=== PATIENT | male | born 1980 | race Caucasian/White ===

== ENCOUNTER 2019-10-11 15:03 | Emergency (ER) | payer MEDICARE, MEDICAID ==
[~2019-10-11] VITALS: Ht 182 cm; Wt 211.8 kg
[~2019-10-11 15:03] MED LIST: ALLO300T2 PO; ALPR1TAB7 PO; CITA40TA11 PO; GABA-488 PO; HYDR-4226 PO; NAPR-1070 PO; VENL75CA PO
--- NOTE | 2019-10-11 15:12 | ED Lower Extremity ---
General Stated Complaint: TWISTED ANKLE Source: patient Exam Limitations: no limitations History of Present Illness Date Seen by Provider: October 11, 2019 Time Seen by Provider: 15:10 Initial Comments To ER per EMS Luis Cristine with reports of stepping down off a curb and felt a popping sensation in his left heel and subsequent pain and inability to bear cristian ght. No other injuries. Onset: just prior to arrival Severity: moderate Pain/Injury Location: left heel Method of Injury: fell Modifying Factors: Worse With Movement Allergies and Home Medications Allergies Coded Allergies: No Known Drug Allergies (Unverified , 01/09/16) Home Medications Allopurinol 300 Mg Tablet, 1 TAB PO DAILY, (Reported) Alprazolam 1 Mg Tablet, 1 TAB PO UD, (Reported) Citalopram Hydrobromide 40 Mg Tablet, 1 TAB PO DAILY, (Reported) Gabapentin 300 Mg Capsule, 1 CAP PO TID, (Reported) Hydrocodone/Acetaminophen 1 Each Tablet, 1 EACH PO Q4H PRN for PAIN Prescribed by: PING PEREZ on 01/09/16 1351 Hydrocodone/Acetaminophen 1 Each Tablet, 1 EACH PO Q4-6HR PRN for PAIN-MODERATE Prescribed by: PING PEREZ on 10/11/19 1606 Venlafaxine HCl 75 Mg Cap.er.24h, 75 MG PO DAILY, (Reported) Patient Home Medication List Home Medication List Reviewed: Yes Review of Systems Constitutional: see HPI EENTM: see HPI Respiratory: no symptoms reported Cardiovascular: no symptoms reported Genitourinary: no symptoms reported Musculoskeletal: see HPI, joint pain Skin: no symptoms reported Psychiatric/Neurological: No Symptoms Reported Past Bpqpqzs-Eubfmq-Mlawod Hx Patient Social History Alcohol Beverage of Choice: Beer Type Used: Cigarettes Former Smoker, Quit: Mar 18, 2006 Recent Hopitalizations: No Immunizations Up To Date Tetanus Booster (TDap): Less than 5yrs Date of Influenza Vaccine: Feb 29, 2016 Seasonal Allergies Seasonal Allergies: No Past Medical History Orthopedic Neuropathy Reproductive Disorders: No Gout Diabetes, Non-Insulin dep Lymphoma Adverse Reaction/Blood Tranf: No Physical Exam Vital Signs Vital Signs - First Documented 10/11/19 15:13 Temp 37.0 Pulse 117 Resp 18 B/P (MAP) 115/71 (86) Pulse Ox 95 Capillary Refill : Height, Weight, BMI Height: 6'0" Weight: 500lbs. oz. 226.086273fk; BMI Method:Stated General Appearance: WD/WN, no apparent distress, obese (morbidly obese which precludes evaluation of swelling of the ankle.) Respiratory: no respiratory distress, no accessory muscle use Hips: bilateral hip non-tender, bilateral hip normal inspection, bilateral hip normal range of motion Legs: bilateral leg non-tender, bilateral leg normal inspection, bilateral leg normal range of motion Knees: bilateral knee non-tender, bilateral knee normal inspection, bilateral knee normal range of motion Ankles: left ankle pain, left ankle soft tissue tenderness Feet: bilateral foot normal inspection, bilateral foot normal range of motion; left foot other (tenderness to palpation over the heel) Neurologic/Psychiatric: alert, normal mood/affect, oriented x 3 Skin: normal color, warm/dry Progress/Results/Core Measures Results/Orders My Orders Orders - PING PEREZ APRN Ankle, Left, 3 Views (10/11/19 15:08) Hydrocodone/Apap 5/325 Tablet (Lortab 5 (10/11/19 16:15) Ibuprofen Tablet (Motrin Tablet) (10/11/19 16:15) Medications Given in ED Current Medications Medications Dose Ordered Sig/Evi Route Start Time Stop Time Status Last Admin Dose Admin Acetaminophen/ Hydrocodone Bitart 1 tab ONCE ONCE PO 10/11/19 16:15 10/11/19 16:16 DC 10/11/19 16:11 1 TAB Ibuprofen 600 mg ONCE ONCE PO 10/11/19 16:15 10/11/19 16:16 DC 10/11/19 16:11 600 MG Vital Signs/I&O 10/11/19 15:13 Temp 37.0 Pulse 117 Resp 18 B/P (MAP) 115/71 (86) Pulse Ox 95 Diagnostic Imaging Diagonstic Imaging: Xray Departure Communication (Admissions) Pts weight of 464 puts him over the weight limit of the CT machine. Will place him in a posterior short leg splint+stirrup splint. He has a wheelchair at home already. He has also used crutches before. He is neurovascularly intact at the toes. Impression Primary Impression: Calcaneus fracture, left Qualified Codes: S92.015A - Nondisplaced fracture of body of left calcaneus, initial encounter for closed fracture Disposition: 01 HOME, SELF-CARE Condition: Stable Departure-Patient Inst. Decision time for Depature: 16:00 Referrals: NO LANTIGUA DPM NO,LOCAL PHYSICIAN (PCP) Primary Care Physician SHENG DOMINGUEZ MD, ROBERT F DO WILDE, CORIN Q DPM ZAFUTA, MICHAEL P MD Patient Instructions: Heel Fracture Add. Discharge Instructions: 1. Wear the splint at all times until you follow up with orthopedics. Do not put any weight on the left foot. Call an orthopedic surgeon of your choosing today or tomorrow to make an appointment for follow-up within the next 1-2 weeks. Pain medication as directed. Scripts Hydrocodone/Acetaminophen (Lorcet 5-325 mg Tablet) 1 Each Tablet 1 EACH PO Q4-6HR PRN for PAIN-MODERATE MDD 10 for 7 Days, #30 TAB Prov: PING PEREZ APRN 10/11/19 PING PEREZ APRN October 11, 2019 15:12
--- NOTE | 2019-10-11 15:54 | Diagnostic Imaging Report ---
INDICATION: Stepped off a curb and heard a pop. Left ankle pain. TIME OF EXAM: 03:32 p.m. FINDINGS: There is generalized demineralization of the left ankle. Ankle alignment appears normal. Ankle mortise is well maintained. Talar dome is smooth. Lateral view does show an obliquely oriented fracture through the posterior aspect of the calcaneus. It is uncertain if this communicates with the subtalar joint. There is also an osseous density adjacent to the plantar aspect of the calcaneus which may represent avulsion of a calcaneal spur. Distal tibia and fibula appear to be intact. No other fractures are seen. IMPRESSION: Calcaneus fracture, as described. There may also be an avulsion of the plantar calcaneal spur. Dictated by: Dictated on workstation # [id number]
[2019-10-11] MEDS ORDERED: HYDR-3870 PO (16:06)
[2019-10-11] MEDS ORDERED: IBUPROFEN 600 MG (MOTRIN) TAB PO ONE (16:15)
[2019-10-11] MEDS ORDERED: HYDROcodone/APAP 5 MG/325 MG (LORTAB) TAB PO ONE (16:15)
[2019-10-11 16:35] VITALS: BP 129/74
--- OUTSIDE RECORDS SUMMARY | 2019-10-11 19:18 | XMS REPORT | Continuity of Care Document ---
Author Organization Unknown Address Unknown Phone Unavailable Allergies Active Description Code Type Severity Reaction Onset Reported/Identified Relationship to Patient Clinical Status Yes No Known Drug Allergies [id number] Drug Allergy Unknown N/A 01/09/2016 Medications There is no data. Problems Date Dx Coded Attending Type Code Diagnosis Diagnosed By 08/31/2015 SURESH COLLADO Ot M19.071 PRIMARY OSTEOARTHRITIS, RIGHT ANKLE AND 09/21/2015 SURESH COLLADO Ot M19.071 PRIMARY OSTEOARTHRITIS, RIGHT ANKLE AND 01/09/2016 PING PEREZ APRN Ot S52.501A UNSP FRACTURE OF THE LOWER END OF RIGHT 01/09/2016 PING PEREZ APRN Ot S69.91XA UNSP INJURY OF RIGHT WRIST, HAND AND FIN 01/09/2016 PING PEREZ APRN Ot W01.0XXA FALL SAME LEV FROM SLIP/TRIP W/O STRIKE 01/09/2016 PING PEREZ APRN Ot Y92.34 SWIMMING POOL (PUBLIC) PLACE 01/09/2016 PING PEREZ APRN Ot Y99 .8 OTHER EXTERNAL CAUSE STATUS 01/19/2016 SURESH COLLADO Ot M19.071 PRIMARY OSTEOARTHRITIS, RIGHT ANKLE AND 01/19/2016 CRISTIAN SEVILLA DO Ot K80.20 CALCULUS OF GALLBLADDER W/O CHOLECYSTITI 01/19/2016 CRISTIAN SEVILLA DO Ot M94.0 CHONDROCOSTAL JUNCTION SYNDROME [TIETZE] 01/19/2016 CRISTIAN SEVILLA DO Ot R16.1 SPLENOMEGALY, NOT ELSEWHERE CLASSIFIED 01/19/2016 CRISTIAN SEVILLA DO Ot S20.212A CONTUSION OF LEFT FRONT WALL OF THORAX, 01/19/2016 CRISTIAN SEVILLA DO Ot S29.9XXA UNSPECIFIED INJURY OF THORAX, INITIAL EN 01/19/2016 CRISTIAN SEVILLA DO, Ot W01.0XXA FALL SAME LEV FROM SLIP/TRIP W/O STRIKE 01/19/2016 CRISTIAN SEVILLA DO Ot Y92.34 SWIMMING POOL (PUBLIC) PLACE 01/19/2016 DI PAYTONCRISTIAN Ot Y93.11 ACTIVITY, SWIMMING 01/19/2016 DI CRISTIAN PAYTON Ot Y99.8 OTHER EXTERNAL CAUSE STATUS 01/22/2016 DI CRISTIAN PAYTON Ot K80.20 CALCULUS OF GALLBLADDER W/O CHOLECYSTITI 01/22/2016 DI CRISTIAN PAYTON Ot M94.0 CHONDROCOSTAL JUNCTION SYNDROME [TIETZE] 01/22/2016 DI CRISTIAN PAYTON Ot R16.1 SPLENOMEGALY, NOT ELSEWHERE CLASSIFIED 01/22/2016 DI CRISTIAN PAYTON Ot S20.212A CONTUSION OF LEFT FRONT WALL OF THORAX, 01/22/2016 ID CRISTIAN PAYTON Ot S29.9XXA UNSPECIFIED INJURY OF THORAX, INITIAL EN 01/22/2016 DI PAYTONCRISTIAN Ot W01.0XXA FALL SAME LEV FROM SLIP/TRIP W/O STRIKE 01/22/2016 CRISTIAN SEVILLA DO Ot Y92.34 SWIMMING POOL (PUBLIC) PLACE 01/22/2016 DI CRISTIAN PAYTON Ot Y93.11 ACTIVITY, SWIMMING 01/22/2016 DI PAYTONCRISTIAN Ot Y99.8 OTHER EXTERNAL CAUSE STATUS 04/07/2016 BRIA SANTA MD Ot E11.9 TYPE 2 DIABETES MELLITUS WITHOUT COMPLIC 04/07/2016 BRIA SANTA MD Ot F17.210 NICOTINE DEPENDENCE, CIGARETTES, UNCOMPL 04/07/2016 BRIA SANTA MD Ot R07.89 OTHER CHEST PAIN 04/07/2016 BRIA SANTA MD Ot S29.9XXA UNSPECIFIED INJURY OF THORAX, INITIAL EN 04/07/2016 BRIA SANTA MD Ot W18.30XA FALL ON SAME LEVEL, UNSPECIFIED, INITIAL 04/07/2016 BRIA SANTA MD Ot Y92.[address] OR NOT APPLICABLE 04/07/2016 BRIA SANTA MD Ot Y93.9 ACTIVITY, UNSPECIFIED 04/07/2016 BRIA SANTA MD Ot Y99.8 OTHER EXTERNAL CAUSE STATUS 04/08/2016 BRIA SANTA MD Ot E11.9 TYPE 2 DIABETES MELLITUS WITHOUT COMPLIC 04/08/2016 BRIA SANTA MD Ot F17.210 NICOTINE DEPENDENCE, CIGARETTES, UNCOMPL 04/08/2016 BRIA SANTA MD Ot R07.89 OTHER CHEST PAIN 04/08/2016 BRIA SANTA MD Ot S29.9XXA UNSPECIFIED INJURY OF THORAX, INITIAL EN 04/08/2016 BRIA SANTA MD Ot W18.30XA FALL ON SAME LEVEL, UNSPECIFIED, INITIAL 04/08/2016 BRIA SANTA MD Ot Y92.[address] OR NOT APPLICABLE 04/08/2016 BRIA SANTA MD Ot Y93.9 ACTIVITY, UNSPECIFIED 04/08/2016 BRIA SANTA MD Ot Y99.8 OTHER EXTERNAL CAUSE STATUS 10/11/2019 SURESH COLLADO Ot M19.071 PRIMARY OSTEOARTHRITIS, RIGHT ANKLE AND Procedures There is no data. Results There is no data. Encounters ACCT No. Visit Date/Time Discharge Status Pt. Type Provider Facility Loc./Unit Complaint [id number] 10/11/2019 15:04:00 020 16:35:00 DIS Emergency PING PEREZ APRN [facility] ER TWISTED ANKLE [id number] 04/07/2016 14:11:00 016 17:09:00 DIS Emergency BRIA SANTA MD [facility] ER FALL/RIGHT RIB PAIN [id number] 01/19/2016 03:49:00 016 06:00:00 DIS Emergency CRISTIAN SEVILLA DO [facility] ER CP FROM FALL LAST WEEK, SOB [id number] 01/09/2016 13:38:00 016 14:07:00 DIS Emergency PING PEREZ APRN [facility] ER FALL RIGHT WRIST INJURY [id number] 08/10/2015 17:44:00 016 23:59:59 CLS Outpatient SURESH COLLADO [facility] RAD RT TOE PAIN,INJ URY
--- OUTSIDE RECORDS SUMMARY | 2019-10-11 19:18 | XMS REPORT ---
Author Author [facility] [employer] [facility] [employer] [facility] [employer] Address [address] [address] Care Team Providers Care Corn Detasseler Machine Operator Name Role Phone NO, LOCAL PHYSICIAN Unavailable Unavailable BRIA SANTA MD Unavailable Unavailable SURESH COLLADO Unavailable Unavailable BRIA SANTA MD Unavailable Unavailable MAGED LY APRN PCP PING PEREZ APRN Unavailable Unavailable Unavailable Unavailable Unavailable Unavailable Unavailable Unavailable Allergies Normalized Allergy Reported Date of Reaction(s) Care Provider Facility Allergy Type classification allergen Allergy Onset DA (1 source.) Unclassified No Known Drug 01-09-2016 - no inform ation BRIA Not Available Allergies ARINA ([id number]) Medications Medication Ingredient Drug Dose Dates Status Sig Sig Care Class(es) (Normalized) (Original) Provid er no venlafaxine Serotonin Active no Venlafaxine no information and information Hcl Active name (1 source.) Norepinephr 75 ORAL ine Daily Reuptake Inhibitor Problems Active Problems Problem Normalized Date Last Normalized Normalized Provider Fa cility Classification Problem(s) Recorded Problem Problem Sta tus Duration External cause Activity, 10-11-2019 - Episodic Active PING SPICER [facility] Via codes: unspecified HOSPITALIST PHYSICIAN Amanda Unspecified (6 Translations: Hospital - sources.) [ OTHER [place] EXTERNAL CAUSE (10724) STATUS] External cause Fall on same 10-11-2019 - Episodic Active AWA ROSENTHAL Via codes: Fall (4 level, HOSPITALIST PHYSICIAN Amanda sources.) unspecified, Hospital - initial [place] encounter (99364) Translations: [ FALL SAME LEV FROM SLIP/TRIP W/O STRIKE ] Fracture of Fracture of Episodic Active MAGED Head on Via lower limb (1 calcaneus 08590 (Work Amanda source.) Phone: Hospital ([phone]) ) Substance-rela Nicotine 10-11-2019 - Chronic Active BRIA [facility] Via mary disorders dependence, Amanda SANTA (3 sources.) cigarettes, Hospital - uncomplicated [place] ([address]) Nonspecific Other chest 10-11-2019 - Episodic Active BRIA [facility] chest pain (4 pain Amanda SANTA sources.) Translations: Hospital - [ Chest wall [place] pain] (93286) Osteoarthritis Primary 10-11-2019 - Chronic Active SURESH [facility] Via (2 sources.) osteoarthritis OZZIE PARSONS , right ankle Hospital - and foot [place] (43712) Diabetes Type 2 10-11-2019 - Chronic Active BRIA [facility] ia mellitus diabetes Amanda SANTA without mellitus Hospital - complication without [place] (3 sources.) complications (39508) Other injuries Unspecified 10-11-2019 - Episodic Active PING PEREZ [facility] Via and conditions injury of ALEJANDRO Patel due to right wrist, Hospital - external hand and [place] causes (2 finger(s), (51971) sources.) initial encounter Other injuries Unspecified 10-11-2019 - Episodic Active BRIA [facility] Via and conditions injury of Amanda SANTA due to thorax, Hospital - external initial [place] causes (6 encounter (49192) sources.) External cause Unspecified 10-11-2019 - Episodic Active IPNG PEREZ [facility] Via codes: Place place or not HOSPITALIST PHYSICIAN Amanda of occurrence applicable Hospital - (4 sources.) Translations: [place] [ SWIMMING (63001) POOL (PUBLIC) PLACE] Past or Other Problems Problem Normalized Date Last Normalized Normalized Provider Fa cility Classification Problem(s) Recorded Problem Problem Sta tus Duration External cause Activity, no information no information BRIA Not Available codes: unspecified ARINA , (93382) Unspecified (2 Translations: MD sources.) [ OTHER EXTERNAL CAUSE STATUS] External cause Fall on same no information no information JOSHU A Not Available codes: Fall (1 level, ARINA , (30611) source.) unspecified, MD initial encounter External cause Unspecified no information no information BRIA Not Available codes: Place place or not ARINA , (52427) of occurrence applicable MD (1 source.) Procedures Procedure Normalized Procedure Procedure Result Performer Facility Date 10-11-2019 X-ray of left ankle no information no name [facility] ([address]) Immunizations The data below is from unstructured sources Immunization Event Date Not Given Reason Dose Number Rolling Up Machine Operator Lot Number Vaccine Information Statement (VIS) Deta il Results The data below is from unstructured sourcesNo known relevant diagnostic tests, laboratory data and/or discharge summary.No known relevant diagnostic tests, laboratory data and/or discharge summary.No known relevant diagnostic tests, laboratory data and/or discharge summary.No known relevant diagnostic tests and/or laboratory data.No known relevant diagnostic te sts and/or laboratory data. Vital Signs The data below is from unstructured sources Vital Response Date/Time Temperature (Fahrenheit) 98.4 degree s F (97.6 - 99.5) 01/09/2016 1:35pm Temperature (Calculated Celsius) 36. 94806 degrees C (36.4 - 37.5) 01/09/2016 1:35pm Temperature Source Temporal 01/09/2016 1:35pm Pulse Rate (adult) 90 bpm (60 - 90) 01/09/2016 1:35pm Respiratory Rate 20 bpm (12 - 24) 01/09/2016 1:35pm O2 Sat by Pulse Oximetry 97 % (88 - 100) 01/09/2016 1:35pm Blood Pressure 145/84 mm Hg 01/09/2016 1:35pm Blood Pressure Mean 104 mm Hg 01/09/2016 1:35pm Pain Numeric Pain Scale 6 1:35pm Height (Feet) 6 feet 1:35pm Height (Inches) 0 inches 01/09/2016 1:35pm Height (Calculated Centimeters) 182. 113759 cm 01/09/2016 1:35pm Weight (Pounds) 380 pounds 01/09/2016 1:35pm Weight (Calculated Kilograms) 172.36 5102 kilograms 01/09/2016 1:35pm Capillary Refill Capillary Refill Less Than 3 Seconds 01/09/2016 1:35pm Height 6 ft 0 in Weight 380 lb Body Mass Index 51.5 kg/m^2 Vital Response Date/Time Temperature (Fahrenheit) 97.0 degree s F (97.6 - 99.5) 01/19/2016 5:57am Temperature (Calculated Celsius) 36. 35136 degrees C (36.4 - 37.5) 01/19/2016 5:57am Temperature Source Temporal 01/19/2016 5:57am Pulse Rate (adult) 96 bpm (60 - 90) 01/19/2016 5:57am Respiratory Rate 16 bpm (12 - 24) 01/19/2016 5:57am O2 Sat by Pulse Oximetry 95 % (88 - 100) 01/19/2016 5:57am Blood Pressure 165/101 mm Hg 01/19/2016 5:57am Blood Pressure Mean 120 mm Hg 01/19/2016 3:58am Pain Numeric Pain Scale 5-Moderate Pain 01/19/2016 5:57am Height (Feet) 6 feet 07/2015 3:58am Height (Inches) 0 inches 01/19/2016 3:58am Height (Calculated Centimeters) 182. 631783 cm 01/19/2016 3:58am Weight (Pounds) 424 pounds 01/19/2016 3:58am Weight (Calculated Kilograms) 192.32 3167 kilograms 01/19/2016 3:58am Capillary Refill Capillary Refill Less Than 3 Seconds 01/19/2016 3:58am Height 6 ft 0 in Weight 424 lb Body Mass Index 57.5 kg/m^2 Vital Reading Result Col lection Date/Time Vital Reading Result Col lection Date/Time Interventions No Information Plan of Treatment Normalized Care Care Detail Care Activity Date Care Provider F acility Activity Patient Education Heel Fracture no information MAGED LY [address] (Work Phone: [facility] ) ([id number]) Patient referral no information no information MAGED LY [address] (Work Phone: [facility] ) ([address]) Goals Patient Goal Desired Goal no information no information Social History Normalized Code Original Code Date Value Tobacco smoking status Tobacco smoking status no information Ex-smoker (finding) AKIS AKIS no information no information 10-11-2019 Occasionally Us es no information no information 10-11-2019 No no information no information 10-11-2019 Former Smoker no information no information 10-11-2019 Cigarettes Sex Assigned At Sex Assigned At no information M disha Functional Status The data below is from unstructured sourcesNo functional status results.No functional status results.No functional status results.No Functional Status information availableNo Functional Status information available Mental Status The data below is from unstructured sourcesNo Mental Status Information Available Encounters Encounter Normalized Encounter Encounter Diagnosis Care Provi cassie Organization Date Type 10-11-2019 Emergency department no information (no phone) [facility] Amanda - patient visit [facility] (no phone) 10-11-2019 10-11-2019 Emergency department no information BRIA ALEMAN [facility] Amanda patient visit (no phone) [facility] (no phone) 04-07-2016 Emergency department no information no name no organization name - patient visit 04-07-2016 04-07-2016 Emergency department no information BRIA ALEMAN [facility] Amanda - patient visit (no phone) [facility] 04-07-2016 (no phone) 01-09-2016 Emergency department no information PING LI (no [facility] Amanda - patient visit phone) [facility] 01-09-2016 (no phone) 08-10-2015 Patient encounter no information SURESH HORNE [facility] Amanda procedure (no phone) [facility] (no phone) Medical Equipment The data below is from unstructured sourcesNo Medical Equipment Information available Payers Normalized Payer Value Medicaid no information ([id number]) Medicare no information ([id number]) Evaluation note Note Type Note Facility Evaluation No Assessments Information Available A scension note [facility] ([id number]) Advance Directives Directive Response Recor ded Date/Time Advance Directives No 1:35pm Resuscitation Status Full Code 01/09/16 1:35pm Directive Response Recor ded Date/Time Advance Directives No 3:58am Resuscitation Status Full Code 01/19/16 3:58am Advance Directive Response Recorded Date/Time Advance Directives No Ma 2019 3:13pm Organ Donor No October 11, 2019 3:13pm Resuscitation Status Full Code October 11, 2019 3:13pm Discharge Instructions No hospital discharge instructions.No hospital discharge instructions. Chief Complaint and Reason for Visit Chief Complaint Lower Extremity Reason for Visit [id number] Additional Source Comments This clinical document has been generated using [employer] software that has been certified by the Office of the National Coordinator for Health Information Technology (ONC 15.99.04.3023.Diam.31.00.0.244776) and the National Committee for Tool Specialist (NCQA, as an eMeasure certified technology). FOR RECORDS PERTAINING TO PATIENTS WHO ARE OR HAVE BEEN ENROLLED IN A CHEMICAL D EPENDENCY/SUBSTANCE ABUSE PROGRAM, SOME INFORMATION MAY BE OMITTED. This clinica l summary was aggregated from multiple sources. Caution should be exercised in using it in the provision of clinical care. This summary normalizes information from multiple sources, and as a consequence, information in this document may ma terially change the coding, format and clinical context of patient data. In karla tion, data may be omitted in some cases. CLINICAL DECISIONS SHOULD BE BASED ON T HE PRIMARY CLINICAL RECORDS. [employer] provides no warranty or guara ntee of the accuracy or completeness of information in this document.The followi ng information is based on time limited clinical information
== END 2019-10-11 16:35 | disposition home or self-care (01) ==
LOC: EDUNIT# 15:03 → ER 15:04
DX: S92.002A Unspecified fracture of left calcaneus, initial encounter for closed fracture (principal); E11.40 Type 2 diabetes mellitus with diabetic neuropathy, unspecified; M10.9 Gout, unspecified; Z87.891 Personal history of nicotine dependence; Z85.71 Personal history of Hodgkin lymphoma; X50.1XXA Overexertion from prolonged static or awkward postures, initial encounter
CPT/HCPCS: 29515; 73610

== ENCOUNTER → 2020-11-13 | Outpatient (CLI) | payer MEDICARE, MEDICAID ==
[~2020-11-13] MED LIST changes: +HYDR-3870 PO
== END | disposition home or self-care (01) ==
LOC: PREOP 05:32
PROVIDERS: ATTEND Specialist
DX: Z01.818 Encounter for other preprocedural examination (principal)

== ENCOUNTER 2022-09-17 11:07 | Emergency (ER) | payer MEDICARE, MEDICAID ==
[~2022-09-17 11:07] MED LIST changes: -CITA40TA11 PO; +CITA40TA13 PO
--- NOTE | 2022-09-17 11:32 | ED General ---
General Chief Complaint: General Problems/Pain Stated Complaint: MED REFILL Nursing Triage Note: PT TO RM 1 BY [facility] WITH C/O NEEDING HIS MEDS REFILLED. PT SEES DR TALAVERA BUT HAS NOT SEEN HIM IN TOO LONG. PT STATES HE HAS BEEN OUT OF HIS MEDS FOR MONTHS Source of Information: Patient Exam Limitations: No Limitations (ROHIT NEGRO) History of Present Illness Date Seen by Provider: September 17, 2022 Time Seen by Provider: 11:27 Initial Comments Patient is a 41-year-old male who was brought to ED by [facility] from [facility] for medication refill. Patient states he has a history of hypertension and diabetes type 2. States he has been out of his metformin, metoprolol for at least a few months. States his blood sugar has been running high but been well controlled with diet changes. Patient also reports finishing his gabapentin for neuropathy about a week ago. Requesting refill of his metoprolol, metformin and gabapentin. Patient states he follows up with Dr. TALAVERA at [facility]. He typically gets around with a wheelchair but states he was not able to follow-up with his primary care physician due to limited vehicle access. Patient does not want any further lab work or work-up at this time. Patient only request is medication refill. Denies chest pain, cough, shortness of breath, headache, dizziness, weakness. Reports chronic neuropathy in his lower extremities described as numbness and tingling. No increasing pain. Patient blood sugar for EMS was 453. Refused addressing this elevated blood sugar. Denies frequent urination, pain with urination, fever, visual changes (ROHIT NEGRO) Allergies and Home Medications Allergies Coded Allergies: No Known Drug Allergies (Unverified , 01/09/16) Patient Home Medication List Home Medication List Reviewed: Yes (ROHIT NEGRO) Allopurinol (Allopurinol) 300 Mg Tablet, 1 TAB PO DAILY, (Reported) Entered as Reported by: MELINDA HOPPER on 01/19/16357 Alprazolam (Alprazolam) 1 Mg Tablet, 1 TAB PO UD, (Reported) Entered as Reported by: MELINDA HOPPER on 01/19/16357 Citalopram Hydrobromide (Citalopram HBr) 40 Mg Tablet, 1 TAB PO DAILY, (Reported) Entered as Reported by: MELINDA HOPPER on 01/19/16 0358 Clotrimazole/Betamethasone Dip (Clotrimazole-Betamethasone Crm) 1 %-0.05 % Cream..g., 15 GM TP BID Prescribed by: OZZIE VYAS on 09/17/22 113 Gabapentin (Gabapentin) 300 Mg Capsule, 1 CAP PO TID, (Reported) Entered as Reported by: MELINDA HOPPER on 01/19/16357 Gabapentin (Neurontin) 300 Mg Capsule, 300 MG PO TID Prescribed by: OZZIE VYAS on 09/17/22 113 Hydrocodone/Acetaminophen (Hydrocodone/Acetaminophen 5 MG/325 MG TAB) 1 Each Tablet, 1 EACH PO Q4H PRN for PAIN Prescribed by: PING PEREZ on 01/09/16 1351 Hydrocodone/Acetaminophen (Lorcet 5-325 mg Tablet) 1 Each Tablet, 1 EACH PO Q4- 6HR PRN for PAIN-MODERATE Prescribed by: PING PEREZ on 10/11/19 1606 Metformin HCl (Metformin HCl) 1,000 Mg Tablet, 1,000 MG PO BID Prescribed by: OZZIE VYAS on 09/17/22 113 Metoprolol Tartrate (Metoprolol Tartrate) 50 Mg Tablet, 50 MG PO BID Prescribed by: OZZIE VYAS on 09/17/22 113 Venlafaxine HCl (Effexor Xr) 75 Mg Cap.er.24h, 75 MG PO DAILY, (Reported) Entered as Reported by: LAURA WILSON on 04/07/16 1427 Review of Systems Review of Systems Constitutional: No chills, No diaphoresis, No malaise, No weakness EENTM: No ear pain, No blurred vision, No double vision Respiratory: No cough, No dyspnea on exertion, No short of breath Cardiovascular: No chest pain Gastrointestinal: No abdominal pain, No diarrhea, No nausea, No vomiting Genitourinary: No decreased output, No discharge Musculoskeletal: No back pain, No joint pain Skin: change in color Psychiatric/Neurological: Other (Numbness and tingling lower extremities) (ROHIT NEGRO) Past Ymlohly-Uwpzoz-Fbpuey Hx Immunizations Up To Date Tetanus Booster (TDap): Less than 5yrs (ROHIT NEGRO) Seasonal Allergies Seasonal Allergies: No (ROHIT NEGRO) Past Medical History Surgeries: Yes (RT ANKLE) Orthopedic Respiratory: No Cardiac: No Neurological: Yes Neuropathy Reproductive Disorders: No Gastrointestinal: No Musculoskeletal: Yes Gout Endocrine: Yes ("DIABETIC WITH NO MEDS", extreme obesity) Diabetes, Non-Insulin dep Cancer: Yes Lymphoma Psychosocial: No Integumentary: No Blood Disorders: No Adverse Reaction/Blood Tranf: No (ROHIT NEGRO) Physical Exam Vital Signs Vital Signs - First Documented 09/17/22 11:12 Temp 37.0 Pulse 124 Resp 20 B/P (MAP) 148/115 (126) Pulse Ox 99 O2 Delivery Room Air (BRIA SANTA MD) Vital Signs Capillary Refill : (ROHIT NEGRO) Height, Weight, BMI Height: 6'0" Weight: 500lbs. oz. 226.454312cq; 63.00 BMI Method:Stated General Appearance: No Apparent Distress, WD/WN Eyes: Bilateral Eye Normal Inspection, Bilateral Eye PERRL, Bilateral Eye EOMI HEENT: PERRL/EOMI, TMs Normal, Normal ENT Inspection, Pharynx Normal Neck: Full Range of Motion, Normal Inspection, Non Tender, Supple Respiratory: Chest Non Tender, Lungs Clear, Normal Breath Sounds, No Accessory Muscle Use, No Respiratory Distress Cardiovascular: No Edema, No Gallop, Tachycardia Gastrointestinal: Normal Bowel Sounds, No Organomegaly, No Pulsatile Mass, Non Tender, Soft Back: Normal Inspection, No CVA Tenderness Extremity: Normal Capillary Refill, Normal Inspection, Normal Range of Motion Skin: Other (Large bilateral inner thigh erythematous rash with flaking skin, crust to the groin area.) (ROHIT NEGRO) Progress/Results/Core Measures Suspected Sepsis SIRS Temperature: Pulse: 124 Respiratory Rate: 20 Blood Pressure 148 /115 Mean: 126 (ROHIT NEGRO) Results/Orders Vital Signs/I&O 09/17/22 09/17/22 11:12 11:54 Temp 37.0 37.0 Pulse 124 124 Resp 20 20 B/P (MAP) 148/115 (126) 141/112 Pulse Ox 99 99 O2 Delivery Room Air Room Air (BRIA SANTA MD) Vital Signs/I&O Capillary Refill : (ROHIT NEGRO) Blood Pressure Mean: 126 Departure Communication (PCP) History of type 2 diabetes, hypertension. Requesting refill of of his metoprolol 50 mg twice daily, metformin 1000 mg twice daily, gabapentin 300 mg 3 times daily. States he has not been able to follow-up with his primary care physician. Has been out of his medication metformin and metoprolol for a few months. Blood sugar by EMS was 458. Denies weakness, visual changes, headache, frequent urination, chest pain, cough, shortness of breath, abdominal pain, vomiting. Discussed my concern for elevated blood sugar. Recommend lab work, liter fluid and suggest controlling his blood sugar at this time and check general lab work, kidney function, urinalysis. Patient refused. He states he wants a refill and to be discharged. Follows up with Dr. TALAVERA at [facility]. Patient requesting refill to [facility]. Discussed my concerns with not addressing his blood sugar. Patient acknowledges. Discussed risk such as kidney failure, hhs, dka, cardiac dysfunction, neurological dysfunction. Patient acknowledges. He will follow-up with his primary care physician. If any change or wanting any further work-up recommend returning back to ED. Patient does have a rash in the groin. Concerning for fungal. Discussed discharging clotrimazole. Patient was tachycardic around 124. Discussed this may be secondary to dehydration, elevated blood sugar, arrhythmia. Patient acknowledges (ROHIT NEGRO) Impression Primary Impression: Medication refill Disposition: 01 HOME, SELF-CARE Condition: Stable Departure-Patient Inst. Referrals: MAGED LY APRN (PCP/Family) Primary Care Physician Patient Instructions: How to Read a Prescription Drug Label Add. Discharge Instructions: Recommend following up with your community health provider for further evaluation. If any developing weakness, chest pain, headache, uncontrolled diabetes return back to ED All discharge instructions reviewed with patient and/or family. Voiced understanding. Scripts Clotrimazole/Betamethasone Dip (Clotrimazole-Betamethasone Crm) 1 %-0.05 % Cream..g. 15 GM TP BID for Rash, #2 EA Prov: ROHIT NEGRO 09/17/22 Metoprolol Tartrate (Metoprolol Tartrate) 50 Mg Tablet 50 MG PO BID, #60 TAB Prov: ROHIT NEGRO 09/17/22 Gabapentin (Neurontin) 300 Mg Capsule 300 MG PO TID, #90 CAP Prov: ROHIT NEGRO 09/17/22 Metformin HCl (Metformin HCl) 1,000 Mg Tablet 1000 MG PO BID, #60 TAB Prov: ROHIT NEGRO 09/17/22 ATTENDING PHYSICIAN NOTE: I was physically present as attending physician in the emergency department dur ing the care of this patient, but I was not directly involved in the decision making or delivery of care for this patient. (BRIA SANTA MD) ROHIT NEGRO September 17, 2022 11:32 BRIA SANTA MD September 19, 2022 06:23
[2022-09-17] MEDS ORDERED: GABA300C PO (11:33)
[2022-09-17] MEDS ORDERED: CLOT15CR6 TP (11:33)
[2022-09-17] MEDS ORDERED: METO50TA15 PO (11:33)
[2022-09-17] MEDS ORDERED: METF-399 PO (11:33)
[2022-09-17 11:54] VITALS: BP 141/112
== END 2022-09-17 11:54 | disposition home or self-care (01) ==
LOC: EDUNIT# 11:07 → ER 11:08
DX: Z76.0 Encounter for issue of repeat prescription (principal); E11.9 Type 2 diabetes mellitus without complications; I10 Essential (primary) hypertension; R00.0 Tachycardia, unspecified; E66.9 Obesity, unspecified; Z68.44 Body mass index [BMI] 60.0-69.9, adult
CPT/HCPCS: 99283